=== PATIENT | female | born 1935 | race Caucasian/White ===

== ENCOUNTER 2020-08-29 16:34 | Emergency (ER) | payer OTHER ==
[~2020-08-29] VITALS: Ht 154.9 cm; Wt 54.4 kg
[2020-08-29 16:35] VITALS: BP 118/49
--- NOTE | 2020-08-29 16:35 | NUR ---
BIBA TO BED 9
--- NOTE | 2020-08-29 17:13 | NUR ---
85/F biba from [facility] with c/o general weakness and dizziness. Per [facility], facility called 911 stating patient was sob, when EMS arrived on scene patients O2 was 98% on room air, [facility] stating family called facility and requested be transported to be evaluated, patient stating she had a panic attack this morning which in the past has "caused chest pain." Patient c/o leg pain at this time, denies chest pain or sob, patient placed in gown on bedside equipment monitor phototypesetting.
--- NOTE | 2020-08-29 17:16 | NUR ---
Dr. Oropeza is evaluating the patient at bedside.
[2020-08-29] MEDS ORDERED: NACL 0.9% 500 ML IV ONE (17:25)
[2020-08-29] MEDS ORDERED: FURO-570 PO (17:57)
[2020-08-29] MEDS ORDERED: ATI.5 PO (17:57)
[2020-08-29] MEDS ORDERED: AMLO10TA PO (17:57)
[2020-08-29] MEDS ORDERED: MELO15TA11 PO (17:57)
[2020-08-29] MEDS ORDERED: PANT40EC PO (17:57)
[2020-08-29] MEDS ORDERED: LISI2.5T12 PO (17:57)
[2020-08-29] MEDS ORDERED: GABA100C PO (17:57)
[2020-08-29] MEDS ORDERED: CELE200C PO (17:57)
[2020-08-29] MEDS ORDERED: METO25TA PO (17:57)
[2020-08-29] MEDS ORDERED: ASPI-1822 PO (17:57)
[2020-08-29] MEDS ORDERED: ATOR10TA PO (17:57)
[2020-08-29] MEDS ORDERED: ZINC100T8 PO (18:01)
[2020-08-29] MEDS ORDERED: ASCO500T95 PO (18:01)
[2020-08-29] MEDS ORDERED: [UNRECOGNIZED DRUG - CODE] PO (18:01)
[2020-08-29] MEDS ORDERED: DOCU-299 PO (18:03)
[2020-08-29] MEDS ORDERED: SENN-73 PO (18:03)
[2020-08-29] MEDS ORDERED: MAGN400S60 PO (18:04)
[2020-08-29 18:07] LABS: BASOPHILS # (AUTO) 0.1 K/uL (0.00-0.22); BASOPHILS % (AUTO) 0.8 % (0.0-2.0); EOSINOPHILS # (AUTO) 0.8 K/uL (0-0.4); EOSINOPHILS % (AUTO) 8.4 % (0.0-4.0); HEMATOCRIT 29.8 % (36-48); HEMOGLOBIN 9.9 g/dL (12.0-16.0); LYMPHOCYTES # (AUTO) 1.4 K/uL (2.5-16.5); MEAN CORPUSCULAR HEMOGLOBIN 31 pg (27-31); MEAN CORPUSCULAR HGB CONC 33 g/dL (33-37); MEAN CORPUSCULAR VOLUME 94.8 fL (80-94); MONOCYTES # (AUTO) 0.8 K/uL (0.8-1.0); MONOCYTES % (AUTO) 8.6 % (1.7-9.3); NEUTROPHILS # (AUTO) 6.1 K/uL (1.8-7.7); NEUTROPHILS % (AUTO) 67.2 % (42.2-75.2); PLATELET COUNT (AUTO) 168 K/uL (140-450); RED BLOOD CELL COUNT(AUTO) 3.15 MIL/uL (4.20-5.40); RED CELL DISTRIBUTION WIDTH 14.3 % (11.6-13.7)
[2020-08-29 18:21] LABS: ANION GAP 14.9 (8-16); CARBON DIOXIDE 28.4 mmol/L (21-32); CHLORIDE 109 mmol/L (98-107); CREATININE 1.8 mg/dL (0.6-1.3); GLUCOSE 115 mg/dL (74-106); POTASSIUM 4.3 mmol/L (3.5-5.1); SODIUM SERUM 148 mmol/L (136-145); UREA NITROGEN, BLOOD 32 mg/dL (7-18)
--- NOTE | 2020-08-29 18:30 | NUR ---
PATIENT PLACED ON BEDPAN TO PROVIDE URINE, PATIENT TOLERATED WELL.
[2020-08-29 18:36] LABS: ALBUMIN 3.6 g/dL (3.4-5.0); ASPARTATE AMINOTRANSFERASE 26 U/L (15-37); THYROID STIMULATING HORMONE 2.25 uIU/mL (0.34-3.74); TOTAL BILIRUBIN 0.5 mg/dL (0.0-1.0)
--- NOTE | 2020-08-29 19:04 | NUR ---
Pt report given to Mckenna HARRIS. Transfer of care at this time.
[2020-08-29] MEDS ORDERED: LORazepam 2 MG/ML VIAL ONE (19:09)
--- NOTE | 2020-08-29 19:15 | NUR ---
Note roxie in ED - 08/30/20 at 0722 by [email or web address] TRYING TO CRAWL OUT OF BED, IS RESTLESS. MEDICATED ORDERED.
--- NOTE | 2020-08-29 19:15 | NUR ---
TRYING TO CRAWL OUT OF BRD, IS RESTLESS. MEDICATED ORDERED
[2020-08-29] MEDS: LORazepam 2 MG/ML VIAL IVP ONE (19:21)
--- NOTE | 2020-08-29 19:30 | NUR ---
O2 TO 80%, PLACED ON NRB @ 15L, O2 SAT INCREASED TO 90 - 92 %
[2020-08-29 19:43] LABS: APPEARANCE,URINE CLEAR (CLEAR); BILIRUBIN,URINE NEGATIVE (NEGATIVE); BLOOD, URINE NEGATIVE (NEGATIVE); COLOR,URINE YELLOW (YELLOW); LEUKOCYTE ESTERASE ,URINE NEGATIVE (NEGATIVE); NITRITE, URINE POSITIVE (NEGATIVE); UGLUCOSE NEGATIVE (NEGATIVE)
--- NOTE | 2020-08-29 21:00 | NUR ---
IS AWAKE, RESTING QUIETLY. O2 SAT = 100% ON NRB, FIO2 DECREASED TO 3L N/C, O2 SAT REMAINS 98 -99%
[2020-08-30] MEDS ORDERED: LORazepam 2 MG/ML VIAL IVP ONE (01:10)
--- NOTE | 2020-08-30 02:00 | NUR ---
AWAKE, ASSISTED WITH REPOSITIONING, WARM BLANKETS GIVEN
[2020-08-30 03:00] VITALS: BP 95/68
--- NOTE | 2020-08-30 03:30 | NUR ---
IS AWAKE, PULLING AT MONITOR LEADS, AND PULLING HEARING AIDS OUT. ASSISTED WITH POSITIONING, HEAR AIDS PLACED.
--- NOTE | 2020-08-30 06:02 | NUR ---
PT FOUND UNRESPONSIVE. DR CAR AT BEDSIDE. PT PULSLESS AND APNEIC
--- NOTE | 2020-08-30 06:05 | NUR ---
PT PRONOUNCED PER DR. CAR
--- NOTE | 2020-08-30 06:28 | NUR ---
CALLED [facility] AND SPOKE WITH CHECO. [phone]. GAVE CLINICAL INFORMATION AND PER [facility]CO SOMEONE WILL BE CALLING BACK SHORTLY FOR MORE INFORMATION.
--- NOTE | 2020-08-30 06:29 | NUR ---
CALL TO PTS SON AND HIS GIRLFRIEND DANY RIOS [phone]. NO ANSWER, MESSAGE LEFT
--- NOTE | 2020-08-30 06:33 | NUR ---
ROSE WITH VALENTIN FROM [facility] AND STATED THAT THEY WILL NOT BE MOVING FORWARD WITH THE CASE. ID #: [id number]
--- NOTE | 2020-08-30 07:20 | NUR ---
RECEIVED REPORT FROM GARIMA HARRIS.
--- NOTE | 2020-08-30 07:25 | NUR ---
SPOKE WITH FERNANDO FROM [facility]. HE WILL CALL BACK.
[2020-08-30] MEDS: LORazepam 2 MG/ML VIAL IVP ONE (07:32)
--- NOTE | 2020-08-30 07:50 | NUR ---
SPOKE WITH FERNANDO FROM [facility]. CASE #[id number]. BODY RELEASED BY BIOLOGICAL SCIENCE AIDE
--- NOTE | 2020-08-30 08:28 | NUR ---
LEFT MESSAGE WITH PTS PCP TO NOTIFY OF . CALLED DR STEINBERG [phone]
--- NOTE | 2020-08-30 09:50 | NUR ---
Pt's son Micah and significant other brought into triage to speak with Dr. Lerma. All questions answered. Opportunity to see patient provided. Son politely refused. Daughter in law allowed at bedside. All belongings provided to daughter in law at this time. Family advised we would contact mortuary and set up arrangements for olive picker.
--- NOTE | 2020-08-30 09:58 | NUR ---
CONTACTED [facility] AND SPOKE TO ROHAN REGARDING PATIENT. ETA FOR SENIOR BENEFITS SPECIALIST WILL BE APPROXIMATELY 2 HOURS.
--- NOTE | 2020-08-30 10:00 | NUR ---
[facility] [phone]
--- NOTE | 2020-08-30 10:10 | NUR ---
Pt moved to room 130 to wait for mortuary filler picker.
--- NOTE | 2020-08-30 10:18 | NUR ---
Daughter in law took home patient's belongings.
--- NOTE | 2020-08-30 12:59 | NUR ---
Mortuary arrived for pickling operator.
--- NOTE | 2020-08-30 13:00 | NUR ---
Patient released into custody of mortuary.
== END 2020-08-30 06:05 ==
LOC: MED 16:34
DX: F41.9 Anxiety disorder, unspecified (principal); I46.9 Cardiac arrest, cause unspecified; Z88.0 Allergy status to penicillin; Z88.8 Allergy status to other drugs, medicaments and biological substances; Z79.899 Other long term (current) drug therapy; Z79.82 Long term (current) use of aspirin
CPT/HCPCS: 36415; 71045; 80053; 81003; 82550; 84443; 84484; 85025; 93005; 96361; 96374; 96376; 99285; J2060; J7030